=== PATIENT | female | born 1995 | race Two or more races ===

== ENCOUNTER 2018-12-12 00:22 | Emergency (ER) | payer MEDICAID, OTHER ==
[~2018-12-12] VITALS: Ht 162.6 cm; Wt 64.0 kg
[2018-12-12 01:38] LABS: Urine Amorphous Crystal FEW /hpf (None Seen); Urine Bacteria MOD /hpf (None Seen); Urine Blood Negative /uL (Negative); Urine Hyaline Cast FEW /lpf (0 - 2); Urine Mucus FEW (None Seen); Urine Specific Gravity 1.031 (1.001-1.035); Urine WBC 110 /hpf (0 - 5)
[2018-12-12] MEDS ORDERED: AZITHROMYCIN 250 MG TAB PO ONE (03:30)
[2018-12-12] MEDS ORDERED: cefTRIAXone SOD 1,000 MG VL IM ONE (03:30)
[2018-12-12 03:37] VITALS: BP 110/48
== END 2018-12-12 03:54 | disposition home or self-care (01) ==
LOC: ER 00:24
DX: N39.0 Urinary tract infection, site not specified (principal); N76.0 Acute vaginitis; Z20.2 Contact with and (suspected) exposure to infections with a predominantly sexual mode of transmission
CPT/HCPCS: 81001; 96372; 99283; J0696

== ENCOUNTER → 2019-01-21 | Emergency (ER) | payer MEDICAID, OTHER | END | disposition left against medical advice (07) | LOC: ER 23:23 | DX: R52 Pain, unspecified (principal); Z53.21 Procedure and treatment not carried out due to patient leaving prior to being seen by health care provider ==

== ENCOUNTER 2019-01-22 09:36 | Emergency (ER) | payer OTHER ==
[~2019-01-22] VITALS: Ht 162.6 cm; Wt 63.5 kg
[2019-01-22] MEDS ORDERED: cefTRIAXone SODIUM 250 MG VL IM ONE (12:00)
[2019-01-22] MEDS ORDERED: AZITHROMYCIN 250 MG TAB PO ONE (12:00)
[2019-01-22 12:18] LABS: Urine Bacteria MOD /hpf (None Seen); Urine Blood Negative /uL (Negative); Urine Mucus FEW (None Seen); Urine Specific Gravity 1.024 (1.001-1.035); Urine WBC 14 /hpf (0 - 5)
[2019-01-22 12:29] VITALS: BP 115/72
== END 2019-01-22 12:32 | disposition home or self-care (01) ==
LOC: ER 09:36
DX: L03.211 Cellulitis of face (principal); N39.0 Urinary tract infection, site not specified; Z20.2 Contact with and (suspected) exposure to infections with a predominantly sexual mode of transmission
CPT/HCPCS: 81001; 96372; 99283; J0696

== ENCOUNTER 2019-03-20 17:37 | Emergency (ER) | payer MEDICAID, OTHER ==
[~2019-03-20] VITALS: Ht 162.6 cm; Wt 65.8 kg
[2019-03-20 18:50] VITALS: BP 138/88
[2019-03-20 20:50] LABS: Urine Bacteria FEW /hpf (None Seen); Urine Blood Negative /uL (Negative); Urine Mucus FEW (None Seen); Urine Specific Gravity 1.029 (1.001-1.035); Urine WBC 8 /hpf (0 - 5)
[2019-03-20] MEDS ORDERED: cefTRIAXone SOD 1,000 MG VL IM ONE (21:00)
[2019-03-20] MEDS ORDERED: AZITHROMYCIN 250 MG TAB PO ONE (21:00)
[2019-03-20] MEDS ORDERED: PENICILLIN G BENZ 1200000 UNITS/2 ML SYRG IM ONE ×2 (21:00→21:14)
== END 2019-03-20 21:56 | disposition home or self-care (01) ==
LOC: ER 17:37
DX: A64 Unspecified sexually transmitted disease (principal)
CPT/HCPCS: 81001; 81025; 96372; 99283; J0561; J0696

== ENCOUNTER 2019-06-17 22:44 | Emergency (ER) | payer MEDICAID, OTHER ==
[~2019-06-17] VITALS: Ht 165.1 cm; Wt 77.1 kg
[2019-06-17 23:47] VITALS: BP 115/62
[2019-06-17 23:48] LABS: Urine Bacteria MOD /hpf (None Seen); Urine Blood Negative /uL (Negative); Urine Mucus FEW (None Seen); Urine Specific Gravity 1.031 (1.001-1.035); Urine WBC 29 /hpf (0 - 5)
[2019-06-18] MEDS ORDERED: cefTRIAXone SOD 1,000 MG VL IM ONE
== END 2019-06-17 23:53 | disposition home or self-care (01) ==
LOC: ER 22:46
DX: N39.0 Urinary tract infection, site not specified (principal)
CPT/HCPCS: 81001; 81025; 96372; 99283; J0696

== ENCOUNTER 2019-10-17 21:09 | Emergency (ER) | payer MEDICAID ==
[~2019-10-17] VITALS: Ht 162.6 cm; Wt 51.7 kg
[2019-10-17] MEDS ORDERED: CLINDAMYCIN 900MG IV 50 ML IV ONE (22:15)
[2019-10-17] MEDS ORDERED: cefTRIAXone 1GM/50ML D5W 50 ML IV ONE (22:15)
[2019-10-17] MEDS ORDERED: SODIUM CHLORIDE 0.9% 1,000 ML IV ONE (22:15)
[2019-10-17 22:31] LABS: Urine Bacteria FEW /hpf (None Seen); Urine Blood 2+ /uL (Negative); Urine Hyaline Cast FEW /lpf (0 - 2); Urine Mucus FEW (None Seen); Urine Specific Gravity 1.032 (1.001-1.035); Urine WBC 22 /hpf (0 - 5)
[2019-10-17 23:59] LABS: Alcohol, Urine < 3.0 mg/dL (0-10); Amphetamine Screen, Urine POSITIVE (NEGATIVE); Barbiturate Scree,Urine NEGATIVE (NEGATIVE); Benzodiazephine Screen, Urine NEGATIVE (NEGATIVE); Cannabinoid Screen, Urine NEGATIVE (NEGATIVE); Cocaine Screen, Urine POSITIVE (NEGATIVE); Phencyclidine Screen, Urine NEGATIVE (NEGATIVE)
[2019-10-18 00:07] LABS: Opiate Scree,Urine POSITIVE (NEGATIVE)
[2019-10-18] MEDS ORDERED: HYDROmorphone HCL 2 MG/ML VL IV ONE (00:45)
[2019-10-18 01:00] VITALS: BP 117/72
== END 2019-10-18 02:41 | disposition left against medical advice (07) ==
LOC: ER 21:09
DX: L03.116 Cellulitis of left lower limb (principal); F19.10 Other psychoactive substance abuse, uncomplicated
CPT/HCPCS: 73700; 80307; 81001; 96365; 96367; 96375; 99285; J0696; J1170; J3490

== ENCOUNTER 2019-11-14 11:18 | Emergency (ER) | payer MEDICAID ==
[~2019-11-14] VITALS: Ht 162.6 cm; Wt 51.7 kg
[2019-11-14 11:38] VITALS: BP 130/85
[2019-11-14 12:02] LABS: Urine Amorphous Crystal FEW /hpf (None Seen); Urine Bacteria MANY /hpf (None Seen); Urine Blood Negative /uL (Negative); Urine Mucus FEW (None Seen); Urine Specific Gravity 1.021 (1.001-1.035); Urine WBC 17 /hpf (0 - 5)
== END 2019-11-14 15:10 | disposition left against medical advice (07) ==
LOC: ER 11:18
DX: N39.0 Urinary tract infection, site not specified (principal); Z53.21 Procedure and treatment not carried out due to patient leaving prior to being seen by health care provider
CPT/HCPCS: 81001

== ENCOUNTER 2020-06-18 20:25 | Emergency (ER) | payer MEDICAID ==
[~2020-06-18] VITALS: Ht 162.6 cm; Wt 59.0 kg
[2020-06-18 20:38] VITALS: BP 111/63
== END 2020-06-18 21:36 | disposition left against medical advice (07) ==
LOC: ER 20:25
DX: M25.511 Pain in right shoulder (principal); Z53.21 Procedure and treatment not carried out due to patient leaving prior to being seen by health care provider

== ENCOUNTER 2020-06-22 23:33 | Emergency (ER) | payer MEDICAID ==
[~2020-06-22] VITALS: Ht 162.6 cm; Wt 62.6 kg
[2020-06-22 23:41] VITALS: BP 111/52
== END 2020-06-23 00:51 | disposition left against medical advice (07) ==
LOC: ER 23:36
DX: R21 Rash and other nonspecific skin eruption (principal); Z53.21 Procedure and treatment not carried out due to patient leaving prior to being seen by health care provider